=== PATIENT | female | born 1990 | race Two or more races ===

== ENCOUNTER → 2021-04-18 | Outpatient (CLI) | payer MEDICAID ==
[~2021-04-18] MED LIST: MARIJUANA
== END | disposition home or self-care (01) ==
LOC: LAB 09:37
PROVIDERS: ATTEND Obstetrics & Gynecology
DX: O99.810 Abnormal glucose complicating pregnancy (principal); Z36.0 Encounter for antenatal screening for chromosomal anomalies; Z3A.15 15 weeks gestation of pregnancy
CPT/HCPCS: 82951

== ENCOUNTER 2021-05-13 10:39 | Observation (INO) | payer MEDICAID | END 2021-05-13 15:00 | disposition home or self-care (01) | LOC: LDRP 10:39 | PROVIDERS: ADMIT Obstetrics & Gynecology; ATTEND Obstetrics & Gynecology | DX: O36.5920 Maternal care for other known or suspected poor fetal growth, second trimester, not applicable or unspecified (principal); O36.8120 Decreased fetal movements, second trimester, not applicable or unspecified; O99.322 Drug use complicating pregnancy, second trimester; F12.90 Cannabis use, unspecified, uncomplicated; Z3A.22 22 weeks gestation of pregnancy; Z79.899 Other long term (current) drug therapy | CPT/HCPCS: 59025; 76815; 81002; 82962; G0378 ==

== ENCOUNTER 2021-06-22 09:20 | Observation (INO) | payer MEDICAID ==
[~2021-06-22] VITALS: Ht 157.5 cm; Wt 78.5 kg
[2021-06-22] MEDS ORDERED: GLYB2.5T9 PO (10:42)
[2021-06-22] MEDS ORDERED: METF-370 PO (10:42)
[2021-06-22] MEDS ORDERED: PREN-96 PO (10:50)
== END 2021-06-22 11:26 | disposition home or self-care (01) ==
LOC: LDRP 09:20
PROVIDERS: ADMIT Obstetrics & Gynecology; ATTEND Obstetrics & Gynecology
DX: O24.419 Gestational diabetes mellitus in pregnancy, unspecified control (principal); O62.9 Abnormality of forces of labor, unspecified; O26.893 Other specified pregnancy related conditions, third trimester; N89.8 Other specified noninflammatory disorders of vagina; Z3A.28 28 weeks gestation of pregnancy
CPT/HCPCS: 59025; 81002; 82948; 82962; 94760; G0378; G0379

== ENCOUNTER 2021-06-28 09:50 | Observation (INO) | payer MEDICAID ==
[~2021-06-28 09:50] MED LIST changes: +GLYB2.5T9 PO; -MARIJUANA; +METF-370 PO; +PREN-96 PO
== END 2021-06-28 10:53 | disposition home or self-care (01) ==
LOC: LDRP 09:50
PROVIDERS: ADMIT Obstetrics & Gynecology; ATTEND Obstetrics & Gynecology
DX: O24.419 Gestational diabetes mellitus in pregnancy, unspecified control (principal); O99.323 Drug use complicating pregnancy, third trimester; F12.90 Cannabis use, unspecified, uncomplicated; Z3A.28 28 weeks gestation of pregnancy
CPT/HCPCS: 59025; 76818; 81002; 82948; 82962; 94760; G0378; G0379

== ENCOUNTER 2021-07-05 09:12 | Observation (INO) | payer MEDICAID | END 2021-07-05 10:31 | disposition home or self-care (01) | LOC: LDRP 09:12 | PROVIDERS: ADMIT Obstetrics & Gynecology; ATTEND Obstetrics & Gynecology | DX: O24.410 Gestational diabetes mellitus in pregnancy, diet controlled (principal); Z3A.29 29 weeks gestation of pregnancy | CPT/HCPCS: 59025; 76818; 81002; 82948; 82962; 94760; G0378 ==

== ENCOUNTER 2021-07-12 08:52 | Observation (INO) | payer MEDICAID ==
[~2021-07-12] VITALS: Ht 157.5 cm; Wt 82.6 kg
== END 2021-07-12 10:23 | disposition home or self-care (01) ==
LOC: XYW 08:52 → LDRP 09:23
PROVIDERS: ADMIT Obstetrics & Gynecology; ATTEND Obstetrics & Gynecology
DX: O24.415 Gestational diabetes mellitus in pregnancy, controlled by oral hypoglycemic drugs (principal); Z3A.30 30 weeks gestation of pregnancy
CPT/HCPCS: 59025; 76818; 81002; 82948; 82962; 94760; G0378; G0379

== ENCOUNTER 2021-07-12 11:15 | Observation (INO) | payer MEDICAID | END 2021-07-19 12:19 | disposition home or self-care (01) | LOC: LDRP 07-19 10:56 | PROVIDERS: ADMIT Obstetrics & Gynecology; ATTEND Obstetrics & Gynecology | DX: O24.419 Gestational diabetes mellitus in pregnancy, unspecified control (principal); Z3A.31 31 weeks gestation of pregnancy | CPT/HCPCS: 59025; 76818; 81002; 82948; 82962; 94760; G0378 ==

== ENCOUNTER 2021-07-24 08:08 | Observation (INO) | payer MEDICAID | END 2021-07-24 11:18 | disposition home or self-care (01) | LOC: LDRP 09:16 | PROVIDERS: ADMIT Obstetrics & Gynecology Obstetrics; ATTEND Obstetrics & Gynecology Obstetrics | DX: O24.419 Gestational diabetes mellitus in pregnancy, unspecified control (principal); O99.323 Drug use complicating pregnancy, third trimester; F12.90 Cannabis use, unspecified, uncomplicated; Z3A.32 32 weeks gestation of pregnancy | CPT/HCPCS: 59025; 76818; 81002; 82962; G0378; G0379 ==

== ENCOUNTER 2021-07-27 08:33 | Observation (INO) | payer MEDICAID | END 2021-07-27 14:48 | disposition home or self-care (01) | LOC: LDRP 12:44 | PROVIDERS: ADMIT Obstetrics & Gynecology; ATTEND Obstetrics & Gynecology | DX: O24.419 Gestational diabetes mellitus in pregnancy, unspecified control (principal); O60.03 Preterm labor without delivery, third trimester; O26.893 Other specified pregnancy related conditions, third trimester; R51.9 Headache, unspecified; O99.323 Drug use complicating pregnancy, third trimester; F12.90 Cannabis use, unspecified, uncomplicated; Z3A.33 33 weeks gestation of pregnancy; X58.XXXA Exposure to other specified factors, initial encounter; Y93.89 Activity, other specified; Y92.89 Other specified places as the place of occurrence of the external cause | CPT/HCPCS: 59025; 76818; 81002; 82948; 82962; 94760; G0378; G0379 ==

== ENCOUNTER 2021-07-31 07:16 | Observation (INO) | payer MEDICAID | END 2021-07-31 10:57 | disposition home or self-care (01) | LOC: LDRP 09:10 | PROVIDERS: ADMIT Obstetrics & Gynecology Obstetrics; ATTEND Obstetrics & Gynecology Obstetrics | DX: O24.419 Gestational diabetes mellitus in pregnancy, unspecified control (principal); Z3A.33 33 weeks gestation of pregnancy | CPT/HCPCS: 59025; 76818; 81002; 82948; 82962; 94760; G0378; G0379 ==

== ENCOUNTER 2021-08-04 08:23 | Observation (INO) | payer MEDICAID ==
[2021-08-04] MEDS ORDERED: METF-371 PO (09:36)
[2021-08-04] MEDS ORDERED: GLYB5TAB8 PO (09:36)
== END 2021-08-04 10:02 | disposition home or self-care (01) ==
LOC: LDRP 09:22
PROVIDERS: ADMIT Obstetrics & Gynecology; ATTEND Obstetrics & Gynecology
DX: O24.419 Gestational diabetes mellitus in pregnancy, unspecified control (principal); O40.3XX0 Polyhydramnios, third trimester, not applicable or unspecified; Z3A.34 34 weeks gestation of pregnancy
CPT/HCPCS: 59025; 76818; 81002; 82948; 82962; G0378; G0379

== ENCOUNTER 2021-08-08 08:12 | Observation (INO) | payer MEDICAID ==
[~2021-08-08 08:12] MED LIST changes: -GLYB2.5T9 PO; +GLYB5TAB8 PO; -METF-370 PO; +METF-371 PO
== END 2021-08-08 09:28 | disposition home or self-care (01) ==
LOC: LDRP 08:12
PROVIDERS: ADMIT Obstetrics & Gynecology; ATTEND Obstetrics & Gynecology
DX: O24.415 Gestational diabetes mellitus in pregnancy, controlled by oral hypoglycemic drugs (principal); O99.323 Drug use complicating pregnancy, third trimester; F12.90 Cannabis use, unspecified, uncomplicated; Z3A.34 34 weeks gestation of pregnancy; Z79.84 Long term (current) use of oral hypoglycemic drugs; Z79.899 Other long term (current) drug therapy
CPT/HCPCS: 59025; 76818; 81002; 82948; 82962; 94760; G0378; G0379

== ENCOUNTER 2021-08-10 08:25 | Observation (INO) | payer MEDICAID | END 2021-08-10 09:20 | disposition home or self-care (01) | LOC: LDRP 08:25 | PROVIDERS: ADMIT Obstetrics & Gynecology; ATTEND Obstetrics & Gynecology | DX: O24.414 Gestational diabetes mellitus in pregnancy, insulin controlled (principal); O99.323 Drug use complicating pregnancy, third trimester; F12.90 Cannabis use, unspecified, uncomplicated; Z3A.35 35 weeks gestation of pregnancy; Z79.4 Long term (current) use of insulin | CPT/HCPCS: 59025; 76818; 81002; 82948; 82962; 94760; G0378 ==

== ENCOUNTER 2021-08-14 08:54 | Observation (INO) | payer MEDICAID ==
[~2021-08-14 08:54] MED LIST changes: -GLYB5TAB8 PO
[2021-08-17] MEDS ORDERED: INSLANTI SC (09:31)
== END 2021-08-17 09:37 | disposition home or self-care (01) ==
LOC: LDRP 08-17 08:00
PROVIDERS: ADMIT Obstetrics & Gynecology; ATTEND Obstetrics & Gynecology
DX: O24.414 Gestational diabetes mellitus in pregnancy, insulin controlled (principal); O62.9 Abnormality of forces of labor, unspecified; Z79.4 Long term (current) use of insulin; Z79.84 Long term (current) use of oral hypoglycemic drugs; Z3A.36 36 weeks gestation of pregnancy
CPT/HCPCS: 59025; 76818; 81002; 82948; 82962; G0378

== ENCOUNTER 2021-08-22 11:00 | Observation (INO) | payer MEDICAID ==
[~2021-08-22 11:00] MED LIST changes: +INSLANTI SC
== END 2021-08-22 12:46 | disposition home or self-care (01) ==
LOC: LDRP 11:00
PROVIDERS: ADMIT Obstetrics & Gynecology; ATTEND Obstetrics & Gynecology
DX: O24.419 Gestational diabetes mellitus in pregnancy, unspecified control (principal); Z3A.36 36 weeks gestation of pregnancy
CPT/HCPCS: 59025; 76818; 81002; 82948; 82962; 94760; G0378

== ENCOUNTER 2021-08-24 09:00 | Observation (INO) | payer MEDICAID ==
[2021-08-24] MEDS ORDERED: GLYB2.5T8 PO (09:43)
== END 2021-08-24 10:26 | disposition home or self-care (01) ==
LOC: LDRP 09:00
PROVIDERS: ADMIT Obstetrics & Gynecology; ATTEND Obstetrics & Gynecology
DX: O24.419 Gestational diabetes mellitus in pregnancy, unspecified control (principal); Z3A.37 37 weeks gestation of pregnancy; Z79.899 Other long term (current) drug therapy
CPT/HCPCS: 59025; 76818; 81002; 82948; 82962; 94760; G0378; G0379

== ENCOUNTER 2021-08-28 07:14 | Observation (INO) | payer MEDICAID ==
[~2021-08-28 07:14] MED LIST changes: +GLYB2.5T8 PO
== END 2021-08-28 10:37 | disposition home or self-care (01) ==
LOC: LDRP 09:27
PROVIDERS: ADMIT Obstetrics & Gynecology Obstetrics; ATTEND Obstetrics & Gynecology Obstetrics
DX: O24.414 Gestational diabetes mellitus in pregnancy, insulin controlled (principal); O26.893 Other specified pregnancy related conditions, third trimester; R10.10 Upper abdominal pain, unspecified; Z79.4 Long term (current) use of insulin; Z79.84 Long term (current) use of oral hypoglycemic drugs; Z3A.37 37 weeks gestation of pregnancy
CPT/HCPCS: 59025; 76818; 81002; 82948; 82962; 94760; G0378; G0379

== ENCOUNTER 2021-08-31 09:00 | Observation (INO) | payer MEDICAID ==
[2021-08-31] MEDS ORDERED: GLYB5TAB8 PO (09:52)
== END 2021-08-31 10:32 | disposition home or self-care (01) ==
LOC: LDRP 09:00
PROVIDERS: ADMIT Obstetrics & Gynecology; ATTEND Obstetrics & Gynecology
DX: O24.419 Gestational diabetes mellitus in pregnancy, unspecified control (principal); Z3A.38 38 weeks gestation of pregnancy
CPT/HCPCS: 59025; 76818; 81002; 82948; 82962; G0378; G0379

== ENCOUNTER 2021-09-03 09:30 | Observation (INO) | payer MEDICAID ==
[~2021-09-03] VITALS: Ht 157.5 cm; Wt 70.3 kg
[~2021-09-03 09:30] MED LIST changes: -GLYB2.5T8 PO; +GLYB5TAB8 PO
[2021-09-03] MEDS ORDERED: TERBUTALINE SULFATE 1 MG/ML 1ML VIAL SC SCH (11:00)
[2021-09-03] MEDS ORDERED: TERBUTALINE SULFATE 1 MG/ML 1ML VIAL SC ONE (11:06)
== END 2021-09-03 11:50 | disposition home or self-care (01) ==
LOC: LDRP 09:30
PROVIDERS: ADMIT Obstetrics & Gynecology; ATTEND Obstetrics & Gynecology
DX: O24.419 Gestational diabetes mellitus in pregnancy, unspecified control (principal); Z3A.38 38 weeks gestation of pregnancy
CPT/HCPCS: 59025; 76818; 81002; 82962; 94760; 96372; G0378; G0379; J3105

== ENCOUNTER 2021-09-05 12:49 | Observation (INO) | payer MEDICAID ==
[2021-09-06] MEDS ORDERED: HYDR-4902 PO (14:26)
[2021-09-06] MEDS ORDERED: DOCU-94 PO (14:26)
[2021-09-06] MEDS ORDERED: IBUP800T27 PO (14:26)
== END 2021-09-05 14:49 | disposition home or self-care (01) ==
LOC: LDRP 12:49
PROVIDERS: ADMIT Obstetrics & Gynecology; ATTEND Obstetrics & Gynecology
DX: O62.9 Abnormality of forces of labor, unspecified (principal); O24.419 Gestational diabetes mellitus in pregnancy, unspecified control; O99.891 Other specified diseases and conditions complicating pregnancy; M54.50 Low back pain, unspecified; R10.2 Pelvic and perineal pain; Z3A.38 38 weeks gestation of pregnancy
CPT/HCPCS: 59025; 76818; 81002; 82948; 82962; G0378; G0379

== ENCOUNTER 2021-09-06 10:26 | Inpatient (IN) | payer MEDICAID ==
[~2021-09-06] VITALS: Ht 157.5 cm; Wt 83.9 kg
[2021-09-06] VITALS (10 sets, daily range): BP systolic 97–117; BP diastolic 59–80
[2021-09-06] MEDS ORDERED: LACTATED RINGER'S 1,000 ML IV ONE (10:30)
[2021-09-06] MEDS ORDERED: ceFAZolin 1GM/50ML 50 ML IV ONE ×2 (10:30→13:41)
[2021-09-06 11:43] LABS: Basophils # (auto) 0 10 ^3/uL (0-0.2); Basophils % (auto) 0.3 % (0.0-2.0); Eosinophils # (auto) 0.1 10 ^3/uL (0-0.8); Eosinophils % (auto) 0.7 % (0.0-7.0); Hematocrit 41.9 % (36.0-46.0); Hemoglobin 14.3 g/dL (12.2-16.2); Lymphocytes # (auto) 2.2 10 ^3/uL (0.4-5.4); Lymphocytes % (auto) 22.9 % (10.0-50.0); Mean Corpuscular Hemoglobin 28.3 pg (28.0-32.0); Mean Corpuscular Volume 83.2 fL (80.0-100.0); Monocytes # (auto) 0.5 10 ^3/uL (0-1.3); Monocytes % (auto) 4.7 % (0.0-12.0); Neutrophils # (auto) 6.9 10 ^3/uL (1.6-8.6); Neutrophils % (auto) 71.4 % (37.0-80.0); Red Blood Cells 5.04 10^6/uL (4.0-5.20); Red Cell Distribution Width 14.4 % (11.8-14.3); White Blood Cell 9.7 10^3/uL (4.4-10.8)
[2021-09-06 11:53] LABS: Urine Bacteria NONE SEEN /hpf (None Seen); Urine Blood Negative /uL (Negative); Urine Specific Gravity 1.007 (1.001-1.035); Urine WBC 1 /hpf (0 - 5)
[2021-09-06 11:57] LABS: INR 0.94 (0.9-1.15); Partial Thromboplastin Time 27.8 sec (23.6-33.0)
[2021-09-06 12:04] LABS: Albumin 2.9 g/dL (3.4-5.0); Calcium 8.9 mg/dL (8.5-10.1); Potassium 4.2 mmol/L (3.5-5.1)
[2021-09-06 12:07] LABS: Bilirubin, Total 0.4 mg/dL (0.2-1.0); Total Protein 6.7 g/dL (6.4-8.2)
[2021-09-06 12:11] LABS: Alcohol, Urine < 3.0 mg/dL (0-10); Amphetamine Screen, Urine NEGATIVE (NEGATIVE); Barbiturate Scree,Urine NEGATIVE (NEGATIVE); Benzodiazephine Screen, Urine NEGATIVE (NEGATIVE); Cannabinoid Screen, Urine NEGATIVE (NEGATIVE); Cocaine Screen, Urine NEGATIVE (NEGATIVE); Opiate Scree,Urine NEGATIVE (NEGATIVE); Phencyclidine Screen, Urine NEGATIVE (NEGATIVE)
[2021-09-06] MEDS: LACTATED RINGER'S 1,000 ML IV SCH ×2 (12:36→21:57)
[2021-09-06] MEDS ORDERED: MORPHINE SULF PF 2 MG/2 ML SYRG ONE (13:32)
[2021-09-06] MEDS ORDERED: ePHEDrine SULFATE 50 MG/ML AMP ONE (13:34)
[2021-09-06] MEDS ORDERED: oxyTOCIN 10 UNIT/ML 10ML VIAL ONE (13:34)
[2021-09-06] MEDS ORDERED: PHENYLEPHRINE HCL 10 MG/ML VL ONE (13:35)
[2021-09-06] MEDS ORDERED: SODIUM CHLORIDE LOCK 10 ML ONE (13:35)
[2021-09-06] MEDS ORDERED: IBUP800T27 PO (14:26)
[2021-09-06] MEDS ORDERED: HYDR-4902 PO (14:26)
[2021-09-06] MEDS ORDERED: DOCU-94 PO (14:26)
[2021-09-06] MEDS ORDERED: LACT. RINGERS/OXYTOCIN 20UNITS 1,000 ML IV ONE (14:30)
[2021-09-06] MEDS ORDERED: ONDANSETRON HCL 4 MG/2 ML VIAL IV PRN (14:30)
[2021-09-06] MEDS ORDERED: MORPHINE SULFATE 4 MG/ML SYR/VIAL IV PRN (14:30)
[2021-09-06] MEDS ORDERED: ceFAZolin 1GM/50ML 50 ML IV SCH (14:30)
[2021-09-06] MEDS ORDERED: METOCLOPRAMIDE HCL 5MG/ml INJ 2ml VIAL ONE (14:35)
[2021-09-06] MEDS ORDERED: ONDANSETRON HCL 4 MG/2 ML VIAL ONE (14:35)
[2021-09-06] MEDS ORDERED: ACETAMINOPHEN IV 1000 MG/100ML (10MG/ML) IV ONE (16:45)
[2021-09-06] MEDS ORDERED: MORPHINE SULFATE INJECTION 2 MG/ML SYRG IV PRN (17:00)
[2021-09-06] MEDS: HYDROmorphone HCL 2 MG/ML VL IV PRN ×2 (21:11→23:33)
[2021-09-06] MEDS: ceFAZolin 1GM/50ML 50 ML IV SCH (21:57)
[2021-09-06 22:51] LABS: Basophils # (auto) 0 10 ^3/uL (0-0.2); Basophils % (auto) 0.4 % (0.0-2.0); Eosinophils # (auto) 0 10 ^3/uL (0-0.8); Eosinophils % (auto) 0.3 % (0.0-7.0); Hematocrit 39.4 % (36.0-46.0); Hemoglobin 13.4 g/dL (12.2-16.2); Lymphocytes # (auto) 1.8 10 ^3/uL (0.4-5.4); Lymphocytes % (auto) 16.9 % (10.0-50.0); Mean Corpuscular Hemoglobin 28.3 pg (28.0-32.0); Mean Corpuscular Hgb Conc. 33.9 g/dL (32.0-36.0); Mean Corpuscular Volume 83.5 fL (80.0-100.0); Monocytes # (auto) 0.4 10 ^3/uL (0-1.3); Monocytes % (auto) 3.9 % (0.0-12.0); Neutrophils # (auto) 8.3 10 ^3/uL (1.6-8.6); Neutrophils % (auto) 78.5 % (37.0-80.0); Red Blood Cells 4.72 10^6/uL (4.0-5.20); Red Cell Distribution Width 14.2 % (11.8-14.3); White Blood Cell 10.5 10^3/uL (4.4-10.8)
[2021-09-07] VITALS (15 sets, daily range): BP systolic 92–126; BP diastolic 59–76
[2021-09-07] MEDS: HYDROmorphone HCL 2 MG/ML VL IV PRN (04:21)
[2021-09-07] MEDS ORDERED: BISACODYL 10 MG RECT SUPP PR PRN (05:30)
[2021-09-07] MEDS ORDERED: ACETAMINOPHEN IV 1000 MG/100ML (10MG/ML) IV ONE (05:30)
[2021-09-07] MEDS: ceFAZolin 1GM/50ML 50 ML IV SCH ×2 (05:36→13:45)
[2021-09-07] MEDS: SIMETHICONE 80 MG CHEWABLE TABLET PO SCH ×4 (05:43→21:57)
[2021-09-07 06:06] LABS: RPR Non Reactive (Non Reactive)
[2021-09-07 06:38] LABS: Basophils # (auto) 0 10 ^3/uL (0-0.2); Basophils % (auto) 0.3 % (0.0-2.0); Eosinophils # (auto) 0.1 10 ^3/uL (0-0.8); Eosinophils % (auto) 0.6 % (0.0-7.0); Hematocrit 34.9 % (36.0-46.0); Lymphocytes # (auto) 1.5 10 ^3/uL (0.4-5.4); Lymphocytes % (auto) 16.6 % (10.0-50.0); Mean Corpuscular Hemoglobin 28.9 pg (28.0-32.0); Mean Corpuscular Hgb Conc. 34.3 g/dL (32.0-36.0); Mean Corpuscular Volume 84.2 fL (80.0-100.0); Monocytes # (auto) 0.4 10 ^3/uL (0-1.3); Monocytes % (auto) 4.6 % (0.0-12.0); Neutrophils # (auto) 6.8 10 ^3/uL (1.6-8.6); Neutrophils % (auto) 77.9 % (37.0-80.0); Nucleated Red Blood Cells % 0.1 %; Red Blood Cells 4.14 10^6/uL (4.0-5.20); White Blood Cell 8.8 10^3/uL (4.4-10.8)
[2021-09-07] MEDS: HYDROcodone-ACET 5/325MG TAB PO PRN ×7 (06:50→23:56)
[2021-09-07] MEDS: IBUPROFEN 800 MG TAB PO PRN ×2 (09:05→17:36)
[2021-09-07] MEDS: DOCUSATE SOD 100 MG CAP PO SCH ×2 (10:06→21:57)
[2021-09-07] MEDS: LACTATED RINGER'S 1,000 ML IV SCH ×2 (10:14→10:23)
[2021-09-08 03:15] VITALS: BP 115/68
[2021-09-08] MEDS: IBUPROFEN 800 MG TAB PO PRN ×2 (05:25→13:18)
[2021-09-08] MEDS: SIMETHICONE 80 MG CHEWABLE TABLET PO SCH ×4 (05:32→22:19)
[2021-09-08 07:00] VITALS: BP 117/78
[2021-09-08] MEDS: HYDROcodone-ACET 5/325MG TAB PO PRN ×4 (07:39→22:20)
[2021-09-08] MEDS: DOCUSATE SOD 100 MG CAP PO SCH ×2 (10:52→22:19)
[2021-09-08 11:00] VITALS: BP 110/76
[2021-09-08 15:00] VITALS: BP 103/68
[2021-09-08] MEDS ORDERED: TETANUS-DIPTH-ACEL PERTUSSIS 0.5ML SYR Tdap IM ONE (17:15)
[2021-09-08 19:15] VITALS: BP 124/75
[2021-09-08 22:45] VITALS: BP 115/68
[2021-09-09] MEDS: HYDROcodone-ACET 5/325MG TAB PO PRN ×2 (03:15→07:32)
[2021-09-09 03:17] VITALS: BP 106/65
[2021-09-09] MEDS: SIMETHICONE 80 MG CHEWABLE TABLET PO SCH (05:55)
[2021-09-09] MEDS: IBUPROFEN 800 MG TAB PO PRN (05:55)
[2021-09-09 06:50] VITALS: BP 116/77
[2021-09-09] MEDS: DOCUSATE SOD 100 MG CAP PO SCH (10:00)
[2021-09-09 11:24] VITALS: BP 116/78
== END 2021-09-09 13:05 | disposition home or self-care (01) | DRG 540 ==
LOC: LDRP 10:26
PROVIDERS: ADMIT Obstetrics & Gynecology; ATTEND Obstetrics & Gynecology
PROC: 10D00Z1 Extraction of Products of Conception, Low, Open Approach (ICD-10-PCS; principal; 2021-09-06 13:37)
DX: O32.1XX0 Maternal care for breech presentation, not applicable or unspecified (principal); O41.03X0 Oligohydramnios, third trimester, not applicable or unspecified; O24.429 Gestational diabetes mellitus in childbirth, unspecified control; Z20.822 Contact with and (suspected) exposure to COVID-19; Z3A.39 39 weeks gestation of pregnancy; Z37.0 Single live birth
CPT/HCPCS: 36415; 59025; 76815; 80053; 80307; 81001; 82948; 82962; 85025; 85610; 85730; 86592; 86850; 86900; 86901; 87426; 90715; 94760; 94762; 96360; 96361; 96365; 96366; 96372; 96374; 96375; G0378; J0131; J0690; J2405; J2590